=== PATIENT | male | born 1955 | race Two or more races ===

== ENCOUNTER 2020-09-12 18:29 | Emergency (ER) | payer SELFPAY ==
[2020-09-12] MEDS ORDERED: ACETAMINOPHEN 500 MG TABLET (FP) PO ONE (18:43)
[2020-09-12 18:44] VITALS: BMI 36.0
[2020-09-12] MEDS ORDERED: ACETAMINOPHEN 325 MG TABLET (FP) ONE (18:49)
[2020-09-12] MEDS ORDERED: SODIUM CHLORIDE 1,000 ML IV STA (19:56)
[2020-09-12 21:00] LABS: BASO % 1.7 % (0-2.0); EOS % 0.6 % (0-4.5); HEMATOCRIT 42.1 % (35.4-49); LYMPH % 21.9 % (8-40); MCH 29.9 pg (25.7-33.7); MCHC 33.3 g/dl (32.0-35.9); MEAN PLT VOLUME 7.9 fl (7.5-11.1); MONO % 11.3 % (3.8-10.2); NEUT % 64.5 % (42.8-82.8); PLATELET COUNT 206 K/MM3 (134-434); RBC 4.67 M/mm3 (4.00-5.60); RDW 13.1 % (11.9-15.9); WHITE BLOOD COUNT 3.5 K/mm3 (4.0-10.8)
[2020-09-12 21:24] LABS: ALBUMIN 3.5 g/dl (3.4-5.0); BILIRUBIN,TOTAL 0.6 mg/dl (0.2-1); CREATININE 0.9 mg/dl (0.55-1.3); POTASSIUM 3.5 mmol/L (3.5-5.1); TOT PROT 6.9 g/dl (6.4-8.2)
[2020-09-12 21:52] LABS: EPITHELIAL CELLS RARE /hpf
[2020-09-13] MEDS ORDERED: CEFTRIAXONE 2,000 MG in DEXTROSE 5%-WATER - 50 ML IVPB ONE (00:33)
[2020-09-13 01:19] VITALS: BP 104/59; PULSE 102; TEMP 99.2
[2020-09-13] MEDS ORDERED: ONDANSETRON 4 MG/2 ML VIAL IVPUSH ONE (01:31)
[2020-09-13] MEDS ORDERED: ONDANSETRON 4 MG/2 ML VIAL ONE (01:33)
== END 2020-09-13 02:52 | disposition home or self-care (01) ==
LOC: FER 18:29
PROC: 3E03329 Introduction of Other Anti-infective into Peripheral Vein, Percutaneous Approach (ICD-10-PCS; principal; 2020-09-12)
PROC: 3E03329 Introduction of Other Anti-infective into Peripheral Vein, Percutaneous Approach (ICD-10-PCS; 2020-09-12)
PROC: 3E033GC Introduction of Other Therapeutic Substance into Peripheral Vein, Percutaneous Approach (ICD-10-PCS; 2020-09-12)
PROC: 3E0337Z Introduction of Electrolytic and Water Balance Substance into Peripheral Vein, Percutaneous Approach (ICD-10-PCS; 2020-09-12)
DX: U07.1 COVID-19 (principal)
CPT/HCPCS: 36415; 74177-TC; 80053; 81003; 81015; 83605; 85025; 87040; 87804; 99285-25; C9803; Q9967; U0003